=== PATIENT | female | born 1965 | race Caucasian/White ===

== ENCOUNTER 2018-09-03 07:39 | Emergency (ER) | payer BC, SELFPAY ==
[2018-09-03 07:41] VITALS: BP 154/88; PULSE 90; RESP 18; TEMP 36.2; O2SAT 97; BMI 25.5
--- NOTE | 2018-09-03 07:48 | ED.VISSUMM ---
- ER Visit Summary Date of Service: 09/03/18 Chief Complaint: Right thigh pain History of Present Illness: The patient is a [address] Dubon. She reports that she has right thigh pain that began 2 days ago. This pain is both anterior and posterior. She describes as an aching pain that is 8 out of 10 at worst and she is pain-free currently. Is worsened by sitting, laying on her right side, external rotation of her hip, or walking upstairs. She reports that walking on level ground does not hurt. She reports that it is relieved by standing. She is pain-free currently. Patient denies any back or leg pain. She denies any recent trauma. No fall, MVA, or change in activity. She denies any paresthesias or weakness. No personal family history of DVT. No recent travel. Review of systems: General: No fever, chills, cold sweats. Cardiovascular: No chest pain, palpitations. Respiratory: No cough, shortness of breath, dyspnea on exertion. Gastrointestinal: No abdominal pain, nausea, vomiting, diarrhea, melena, or hematochezia. Genitourinary: No dysuria, frequency, hematuria. Skin: No rash. Neuro: No headache, numbness, weakness. Physical Examination: Vitals: Stable. Afebrile. General: Well-nourished and well-developed. Head: Normocephalic atraumatic. Neck: Supple, no lymphadenopathy. No JVD. Nontender. Cardiovascular: Regular rate and rhythm. No murmurs. Respiratory: No respiratory distress. Clear to auscultation bilaterally. Abdominal: Soft, nontender, nondistended, normal bowel sounds. No guarding, rebound, or peritoneal signs. Back: Nontender. Extremities: Nontender, no edema. Skin: Normal color, no rash. Neurologic: Alert and oriented ?3. Cranial nerves II through XII are intact. Normal strength and sensation. Psych: Normal affect. Test Results: Right femur x-rays negative. As read by radiology. Does appear to be a small fragment of ossification on the posterior proximal femur. This does not appear to be an avulsion. I do not know the cause of this. Emergency Department Course and Treatment: An [facility] report was obtained which was negative. She was given ibuprofen here. Had a prolonged discussion with patient that at this time I do not have an explanation for her pain. We discussed the possibility that she is going to develop shingles. She is instructed to return if she does develop a vesicular rash. Treatment Plan: Patient will be discharged with Hamlin. Instructed to use ibuprofen in addition for pain. Follow-up Dr. Dubon in 3 to 5 days if not improving. Return to the emergency department for any worsening symptoms. Disposition: To home in improved and stable condition. Impression: 1. Right thigh pain, acute. This note was generated with [employer] dictation software. It may contain incorrect words, spelling, and punctuation that were not noted in review of the chart prior to signing ED Disposition - Plan for ED Patient: Disposition: Home or Assisted Living Instructions: Muscle Spasm Prescriptions: Hydrocodone Bitart/Apap 5-325 [Hamlin 5MG-325MG] 1 tab PO Q6H PRN PRN 3 Days #12 tab PRN Reason: Pain Prescription Printed Referrals: Charity Dubon MD [Primary Care Provider] - 3-5 Days if not improving
[2018-09-03] MEDS: Ibuprofen 600 MG Tablet PO (08:01)
--- NOTE | 2018-09-03 08:03 | RAD_ITS ---
STUDY: X-RAY - RIGHT FEMUR REASON FOR STUDY: Female, 52 years old. Pain. TECHNIQUE: 3 view(s) of the femur. COMPARISON: None. FINDINGS: Normal visualized femur. Normal visualized soft tissue structure. RAD/Femur Min 2 Views IMPRESSION: No evidence of acute osseous abnormality. Electronically Signed: Ac Bonilla DO at 8:45 EDT , Service support ,
== END 2018-09-03 09:10 | disposition home or self-care (01) ==
LOC: ED 08:35
PROVIDERS: Emergency Provider Emergency Medicine; Family Provider Internal Medicine; PCP Internal Medicine
DX: M79.651 Pain in right thigh (principal); E78.00 Pure hypercholesterolemia, unspecified
CPT/HCPCS: 73552; 99283